=== PATIENT | female | born 2000 | race Caucasian/White ===

== ENCOUNTER 2018-09-28 17:36 | Emergency (ER) | payer OTHER ==
[2018-09-28 18:36] LABS: BASOPHILS # (AUTO) 0.1 10^3/uL (0.0-0.1); BASOPHILS % (AUTO) 0.8 %; EOSINOPHILS # (AUTO) 0.3 10^3/uL (0.0-0.7); EOSINOPHILS % (AUTO) 3.8 %; HGB - HEMOGLOBIN 13.4 g/dL (12.0-16.0); LYMPHOCYTES # (AUTO) 2.8 10^3/uL (1.5-3.5); LYMPHOCYTES % (AUTO) 34.3 %; MEAN CORPUSCULAR HEMOGLOBIN 29.5 pg (27.0-31.0); MEAN CORPUSCULAR HGB CONC 33.3 g/dL (32.0-36.0); MEAN CORPUSCULAR VOLUME 88.5 fL (81.0-99.0); MONOCYTES # (AUTO) 0.8 10^3/uL (0.0-1.0); MONOCYTES % (AUTO) 10.2 %; NEUTROPHILS # (AUTO) 4.2 10^3/uL (1.5-6.6); NEUTROPHILS % (AUTO) 50.9 %; PLT - PLATELET COUNT 249 10^3/uL (130-450); RED BLOOD COUNT 4.54 10^6/uL (4.20-5.40); WHITE BLOOD COUNT 8.2 x10^3/uL (4.8-10.8)
[2018-09-28 18:46] LABS: ALBUMIN 4.1 g/dL (3.2-5.5); ALBUMIN/GLOBULIN RATIO 1.2 (1.0-2.2); BILIRUBIN,TOTAL 0.5 mg/dL (0.2-1.0); CREATININE 0.8 mg/dL (0.4-1.0); TOTAL PROTEIN 7.6 g/dL (6.7-8.2)
[2018-09-28 18:54] LABS: CALCIUM 9.2 mg/dL (8.5-10.3)
[2018-09-28 21:22] LABS: BILIRUBIN,URINE NEGATIVE (NEGATIVE); GLUCOSE, URINE (UA) NEGATIVE (NEGATIVE); KETONES,URINE (UA) NEGATIVE (NEGATIVE); LEUKOCYTE ESTERASE, URINE NEGATIVE (NEGATIVE); NITRITE,URINE NEGATIVE (NEGATIVE); OCCULT BLOOD,URINE NEGATIVE (NEGATIVE); PROTEIN,URINE NEGATIVE (NEGATIVE); UROBILINOGEN,URINE 0.2 (NORMAL) E.U./dL (NORMAL)
[2018-09-28 21:28] LABS: CLARITY,URINE CLEAR (CLEAR); HCG UR QUAL NEGATIVE
--- NOTE | 2018-09-28 21:34 | ED Physician Documentation ---
PD HPI ABD PAIN - Stated complaint Stated Complaint: L SIDE PX - Chief complaint Chief Complaint: General - History obtained from History obtained from: Patient - History of Present Illness Timing - onset: How many weeks ago (1) Timing - duration: Weeks (1) Timing - details: Gradual onset, Still present, Waxing and waning Quality: Cramping, Aching, Pain Location: LUQ Radiation: Left flank. No: Chest Improved by: Laying still. No: Eating Worsened by: Moving, Breathing, Palpation. No: Eating Associated symptoms: No: Fever, Nausea, Vomiting, Diarrhea, Constipation (has had formed stools most daily), Melena, Chest pain (breathing hurts, but causes pain LUQ and not chest itself), Loss of appetite Similar symptoms before: Has not had sx before Recently seen: Clinic (3 days ago in [facility] and Rx Ibuprofen, with normal CXR.) Review of Systems Constitutional: denies: Fever, Chills Nose: denies: Rhinorrhea / runny nose, Congestion Throat: denies: Sore throat Respiratory: denies: Cough GI: reports: Abdominal Pain. denies: Abdominal Swelling, Nausea, Vomiting, Constipation, Diarrhea : denies: Dysuria, Frequency, Hematuria, Discharge Skin: denies: Rash, Lesions PD PAST MEDICAL HISTORY - Past Medical History Past Medical History: No Cardiovascular: None Respiratory: None GI: None - Past Surgical History Past Surgical History: No - Present Medications Home Medications: Ambulatory Orders Medication Instructions Recorded Confirmed Docusate Sodium 100 mg PO DAILY #20 capsule 09/29/18 Hydrocodone/Acetaminophen [[place] 1 each PO Q6H PRN #15 tablet 09/29/18 5-325 Tablet] Naproxen 375 mg PO BID #20 tablet 09/29/18 - Allergies Allergies/Adverse Reactions: Allergies Allergy/AdvReac Type Severity Reaction Status Date / Time No Known Drug Allergies Allergy Verified 09/28/18 17:55 - Social History Does the pt smoke?: No Smoking Status: Never smoker Does the pt drink ETOH?: No Does the pt have substance abuse?: No Substance Use and Type: Marijuana PD ED PE NORMAL - Vitals Vital signs reviewed: Yes - General General: Alert and oriented X 3, Well developed/nourished, Other (appears in pain LUQ abd. ) - HEENT HEENT: Pharynx benign - Neck Neck: Supple, no meningeal sign, No adenopathy - Cardiac Cardiac: RRR, No murmur - Respiratory Respiratory: Clear bilaterally - Abdomen Abdomen: Normal bowel sounds, Soft, Non distended, No organomegaly, Other (very tender locally LUQ with some percussion and referred tenderness. No rebound. No general abd tenderness. No CVA tenderness. ) - Female Female : Deferred - Back Back: No CVA TTP - Derm Derm: Normal color, Warm and dry, No rash (not tender on skin to light touch) - Extremities Extremities: No tenderness to palpate, Normal ROM s pain, No edema, No calf tenderness / cord - Neuro Neuro: Alert and oriented X 3, No motor deficit, Normal speech Results - Vitals Vitals: Vital Signs - 24 hr 09/28/18 09/28/18 09/28/18 17:52 19:52 21:58 Temperature 36.6 C 36.8 C 36.7 C Heart Rate 74 77 70 Respiratory 14 12 14 Rate Blood Pressure 135/89 H 134/73 H 127/82 H O2 Saturation 100 100 100 09/29/18 00:05 Temperature 37.1 C Heart Rate 82 Respiratory 14 Rate Blood Pressure 104/63 O2 Saturation 100 Oxygen O2 Source Room air - Labs Labs: Laboratory Tests 09/28/18 09/28/18 09/28/18 18:20 18:20 21:19 WBC 8.2 RBC 4.54 Hgb 13.4 Hct 40.2 MCV 88.5 MCH 29.5 MCHC 33.3 RDW 13.0 Plt Count 249 MPV 8.0 Neut # (Auto) 4.2 Lymph # (Auto) 2.8 [place] # (Auto) 0.8 Eos # (Auto) 0.3 Baso # (Auto) 0.1 Absolute Nucleated RBC 0.01 Nucleated RBC % 0.1 Sodium 138 Potassium 3.8 Chloride 105 Carbon Dioxide 23 Anion Gap 10.0 BUN 11 Creatinine 0.8 Estimated GFR (MDRD) 92 Glucose 91 Calcium 9.2 Total Bilirubin 0.5 AST 22 ALT 14 Alkaline Phosphatase 56 Total Protein 7.6 Albumin 4.1 Globulin 3.5 Albumin/Globulin Ratio 1.2 Lipase 39 Urine Color YELLOW Urine Clarity CLEAR Urine pH 6.0 Ur Specific [place] <=1.005 Urine Protein NEGATIVE Urine Glucose (UA) NEGATIVE Urine Ketones NEGATIVE Urine Occult Blood NEGATIVE Urine Nitrite NEGATIVE Urine Bilirubin NEGATIVE Urine Urobilinogen 0.2 (NORMAL) Ur Leukocyte Esterase NEGATIVE Ur Microscopic Review NOT INDICATED Urine Culture Comments NOT INDICATED Urine HCG, Qual NEGATIVE - Rads (name of study) abd CT Radiology: Prelim report reviewed (no acute process), See rad report PD MEDICAL DECISION MAKING - ED course Complexity details: reviewed results (CT report without acute process. To my eye, there is moderate amount stool and full stomach load, so consider delayed emptying or some element of constipation. Will give stool softener. ), re- evaluated patient (pain improved with IV meds. Still locally tender LUQ. ), considered differential, d/w patient Departure - Departure Disposition: Home, Self Care Clinical Impression: Abdominal pain Qualifiers: Abdominal location: left upper quadrant Qualified Code(s): R10.12 - Left upper quadrant pain Condition: Stable Record reviewed to determine appropriate education?: Yes Instructions: ED Abdominal Pain Unkn Cause Follow-Up: KETTY EASON [Primary Care Provider] - Prescriptions: Docusate Sodium 100 mg PO DAILY #20 capsule Hydrocodone/Acetaminophen [[place] 5-325 Tablet] 1 each PO Q6H PRN #15 tablet PRN Reason: Pain Naproxen 375 mg PO BID #20 tablet Comments: Stay well-hydrated. Liquid diet and soft food for a day or 2. Use some anti-inflammatories such as naproxen with food twice daily for the next week or so. Add hydrocodone if needed for pain. Use docusate stool softener once or twice daily for the next week to be sure to have soft stool out. Follow-up with your primary care in the next few days for recheck. Discharge Date/Time: 09/29/18 00:15
[2018-09-28] MEDS ORDERED: SODIUM CHLORIDE 0.9% 1,000 ML IV ONE (21:58)
[2018-09-28] MEDS ORDERED: KETOROLAC 15 MG/ML VIAL IVP STA (21:58)
[2018-09-28] MEDS ORDERED: MORPHINE 2 MG/ML CARPUJECT IVP STA (22:03)
[2018-09-28] MEDS ORDERED: IOVERSOL 320 100 ML VIAL IVP ONE ×2 (22:21→22:42)
--- NOTE | 2018-09-28 22:53 | CT Report ---
Reason: LUQ abd pain for a week Procedure Date: 09/28/2018 Accession Number: [id number] / [id number] Procedure: CT - Abdomen/Pelvis W CPT Code: FULL RESULT: EXAM: CT ABDOMEN AND PELVIS EXAM DATE: 09/28/2018 10:40 PM. CLINICAL HISTORY: Left upper quadrant abdominal pain for a week. COMPARISONS: None. TECHNIQUE: Routine helical CT imaging was performed through the abdomen and pelvis. IV contrast: 100 mL Optiray 320. Enteric contrast: No. Reconstructions: Coronal and sagittal. In accordance with CT protocol optimization, one or more of the following dose reduction techniques were utilized for this exam: automated exposure control, adjustment of mA and/or KV based on patient size, or use of iterative reconstructive technique. FINDINGS: Lung Bases: No acute findings. Liver: Unremarkable. Gallbladder: Unremarkable. Bile Ducts: Unremarkable. Pancreas: Unremarkable. Spleen: Unremarkable. Adrenals: Unremarkable. Kidneys: Unremarkable. Bowel: The appendix is not definitely seen. No acute bowel findings are seen. No free fluid or free air. No evidence for bowel obstruction. Pelvis: The bladder is unremarkable. Uterus is anteverted. Vasculature: No acute findings. Bones: No acute bone findings. Moderate L5-S1 degenerative disk disease with disk height loss and osteophytes. IMPRESSION: No acute findings are seen. See above. RADIA
[2018-09-29] MEDS ORDERED: HYDROcod/ACET 5/325 Prepack 4 PO STA (00:03)
[2018-09-29] MEDS ORDERED: DOCUSATE SODIUM 100 MG CAPSULE PO STA (00:03)
[2018-09-29 00:06] VITALS: BP 104/63
== END 2018-09-29 00:15 | disposition home or self-care (01) ==
LOC: ED 17:36
DX: R10.12 Left upper quadrant pain (principal); K59.00 Constipation, unspecified
CPT/HCPCS: 36415; 74177; 80053; 81003; 81025; 83690; 85025; 96361; 96374; 99283; A9270; Q9967; 81001; 87086

== ENCOUNTER 2018-10-08 07:24 | Emergency (ER) | payer OTHER ==
--- NOTE | 2018-10-08 07:36 | ED Physician Documentation ---
History of Present Illness - Stated complaint Stated Complaint: VOMITING/PAIN ALL OVER - History obtained from History obtained from: Patient - History of Present Illness Timing: Prior to arrival - Additonal information Additional information: Patient is a 17-year-old female presenting with diffuse abdominal pain associated with nausea, vomiting, constipation worsening over the past several hours. Patient admits that she has been struggling with abdominal issues over the past few weeks and has seen her primary care physician and then was in this ED about 10 days ago with negative work-up. Patient was sent home with naproxen and hydrocodone. Patient states she has been using the hydrocodone and became constipated. Patient then started using a stool softener yesterday and had a small amount of stool passed this morning. Patient denies fever, chills, vaginal changes, although patient is on her menstrual period at this time. No other improving or worsening factors noted. Review of Systems Constitutional: denies: Fever GI: reports: Abdominal Pain, Nausea, Vomiting, Constipation : reports: Vaginal bleeding. denies: Dysuria PD PAST MEDICAL HISTORY - Past Medical History Cardiovascular: None Respiratory: None GI: None - Past Surgical History Past Surgical History: No - Present Medications Home Medications: Ambulatory Orders Medication Instructions Recorded Confirmed Docusate Sodium 100 mg PO DAILY #20 capsule 09/29/18 Hydrocodone/Acetaminophen [[place] 1 each PO Q6H PRN #15 tablet 09/29/18 5-325 Tablet] Naproxen 375 mg PO BID #20 tablet 09/29/18 Dicyclomine [Bentyl] 20 mg PO QID #14 capsule 10/08/18 - Allergies Allergies/Adverse Reactions: Allergies Allergy/AdvReac Type Severity Reaction Status Date / Time No Known Drug Allergies Allergy Verified 10/08/18 07:38 - Social History Does the pt smoke?: No Smoking Status: Never smoker Does the pt drink ETOH?: No Does the pt have substance abuse?: No PD ED PE NORMAL - Vitals Vital signs reviewed: Yes - General General: Alert and oriented X 3, No acute distress, Well developed/nourished, Other (Tearful, uncomfortable appearing) - HEENT HEENT: Atraumatic, Moist mucous membranes, Pharynx benign, Dentition benign - Cardiac Cardiac: RRR, No murmur - Respiratory Respiratory: No respiratory distress, Clear bilaterally - Abdomen Abdomen: Soft, Non distended. No: Non tender (Diffuse moderate tenderness without rebound or guarding.) - Derm Derm: Normal color, Warm and dry, No rash - Extremities Extremities: No deformity, No tenderness to palpate - Neuro Neuro: Alert and oriented X 3, No motor deficit, No sensory deficit - Psych Psych: Normal mood, Normal affect Results - Vitals Vitals: Vital Signs - 24 hr 10/08/18 10/08/18 07:33 11:46 Temperature 37.2 C 37 C Heart Rate 102 H 88 Respiratory 14 20 Rate Blood Pressure 102/60 108/65 O2 Saturation 97 99 Oxygen O2 Source Room air - Labs Labs: Laboratory Tests 10/08/18 10/08/18 10/08/18 07:59 07:59 07:59 WBC 13.8 H RBC 4.67 Hgb 13.8 Hct 41.9 MCV 89.7 MCH 29.6 MCHC 32.9 RDW 12.4 Plt Count 216 MPV 9.7 Neut # (Auto) 12.5 H Lymph # (Auto) 0.4 L [place] # (Auto) 0.6 Eos # (Auto) 0.2 Baso # (Auto) 0.0 Absolute Nucleated RBC 0.00 Nucleated RBC % 0.0 Sodium 137 Potassium 4.0 Chloride 102 Carbon Dioxide 23 Anion Gap 12.0 BUN 11 Creatinine 0.8 Estimated GFR (MDRD) 92 Glucose 126 H Calcium 9.2 Total Bilirubin 0.8 AST 18 ALT 14 Alkaline Phosphatase 56 Total Protein 7.9 Albumin 4.3 Globulin 3.6 Albumin/Globulin Ratio 1.2 Lipase 31 Serum HCG, Qual NEGATIVE Urine Color Urine Clarity Urine pH Ur Specific [place] Urine Protein Urine Glucose (UA) Urine Ketones Urine Occult Blood Urine Nitrite Urine Bilirubin Urine Urobilinogen Ur Leukocyte Esterase Ur Microscopic Review Urine Culture Comments Urine HCG, Qual 10/08/18 10:40 WBC RBC Hgb Hct MCV MCH MCHC RDW Plt Count MPV Neut # (Auto) Lymph # (Auto) [place] # (Auto) Eos # (Auto) Baso # (Auto) Absolute Nucleated RBC Nucleated RBC % Sodium Potassium Chloride Carbon Dioxide Anion Gap BUN Creatinine Estimated GFR (MDRD) Glucose Calcium Total Bilirubin AST ALT Alkaline Phosphatase Total Protein Albumin Globulin Albumin/Globulin Ratio Lipase Serum HCG, Qual Urine Color YELLOW Urine Clarity CLEAR Urine pH 7.5 Ur Specific [place] 1.010 Urine Protein NEGATIVE Urine Glucose (UA) NEGATIVE Urine Ketones NEGATIVE Urine Occult Blood NEGATIVE Urine Nitrite NEGATIVE Urine Bilirubin NEGATIVE Urine Urobilinogen 0.2 (NORMAL) Ur Leukocyte Esterase NEGATIVE Ur Microscopic Review NOT INDICATED Urine Culture Comments NOT INDICATED Urine HCG, Qual NEGATIVE PD MEDICAL DECISION MAKING - ED course Complexity details: reviewed old records, reviewed results, re-evaluated patient, considered differential, d/w patient ED course: Patient has been seen by her primary care physician and by the ED in the last several days regarding her abdominal complaints. Work-up including CT imaging 10 days ago returned relatively unremarkable. Have low suspicion for new acute pathology such as appendicitis, gallbladder disease, pancreatitis, Diverticulitis, AAA, renal disease including UTI, or other pelvic pathology, but considered. Do feel the patient's menstrual cramps could be contributing to today's complaints. Also have high suspicion that patient has been suffering from constipation likely from her use of narcotics without a stool softener or laxative. Also considering small bowel obstruction and will plan to obtain plain films once test returns negative. Screening lab work and urinalysis also ordered. Patient started on IV fluids, Zofran, and Bentyl.Screening lab work returned without acute abnormalities except for mild leukocytosis, likely reflective of recent repetitive vomiting as opposed to true infection or sepsis. Urinalysis also returned unremarkable for infection or other complication. testing negative. Patient received Toradol and abdominal plain film obtained. Plain film did not find evidence of obstruction or heavy stool burden, but large amount of gas. Tampon also visualized. Patient confirmed recent placement of tampon within the last several hours. Do not feel this is related to her issues today. Patient reports extreme relief with administration of Toradol. Discussed cessation of narcotics as feel this was likely contributing to her discomfort. Also recommended continued use of stool softener/laxative, NSAIDs, and will discharge home with Bentyl as well. Do feel that her menstrual cramping is contributory today to. Discussed other supportive cares, diet hydration recommendations, return precautions, and appropriate follow-up. Patient voiced understanding and is comfortable with discharge plan. Departure - Departure Disposition: 01 Home, Self Care Clinical Impression: Abdominal pain Qualifiers: Abdominal location: generalized Qualified Code(s): R10.84 - Generalized abdominal pain Condition: Good Instructions: ED Abdominal Pain Unkn Cause Follow-Up: KETTY EASON [Primary Care Provider] - Within 3 Days Prescriptions: Dicyclomine [Bentyl] 20 mg PO QID #14 capsule Comments: Please stop using narcotics. Please continue to use nausea medications, as well as stool softeners and laxatives as prescribed. May use Bentyl for cramping as needed. May also use Ibuprofen/Tylenol. Recommend hydration with Powerade/Gatorade, bland diet advancing as tolerated, and follow-up with your primary care physician in next 2 to 3 days. Return to ED sooner if experience worsening symptoms or have other concerns.
[2018-10-08] MEDS ORDERED: SODIUM CHLORIDE 0.9% 1,000 ML IV ONE (07:44)
[2018-10-08] MEDS ORDERED: ONDANSETRON 4 MG/2 ML VIAL IVP STA (07:44)
[2018-10-08] MEDS ORDERED: DICYCLOMINE 10 MG CAPSULE PO STA (07:44)
[2018-10-08 08:08] LABS: BASOPHILS % (AUTO) 0.1 %; EOSINOPHILS # (AUTO) 0.2 10^3/uL (0.0-0.7); EOSINOPHILS % (AUTO) 1.5 %; HGB - HEMOGLOBIN 13.8 g/dL (12.0-16.0); LYMPHOCYTES # (AUTO) 0.4 10^3/uL (1.5-3.5); LYMPHOCYTES % (AUTO) 3.1 %; MEAN CORPUSCULAR HEMOGLOBIN 29.6 pg (27.0-31.0); MEAN CORPUSCULAR HGB CONC 32.9 g/dL (32.0-36.0); MEAN CORPUSCULAR VOLUME 89.7 fL (81.0-99.0); MEAN PLATELET VOLUME 9.7 fL (7.9-10.8); MONOCYTES # (AUTO) 0.6 10^3/uL (0.0-1.0); MONOCYTES % (AUTO) 4.5 %; NEUTROPHILS # (AUTO) 12.5 10^3/uL (1.5-6.6); NEUTROPHILS % (AUTO) 90.5 %; PLT - PLATELET COUNT 216 10^3/uL (130-450); RED BLOOD COUNT 4.67 10^6/uL (4.20-5.40); RED CELL DISTRIBUTION WIDTH 12.4 % (12.0-15.0); WHITE BLOOD COUNT 13.8 x10^3/uL (4.8-10.8)
[2018-10-08 08:20] LABS: ALBUMIN 4.3 g/dL (3.2-5.5); ALBUMIN/GLOBULIN RATIO 1.2 (1.0-2.2); BILIRUBIN,TOTAL 0.8 mg/dL (0.2-1.0); CALCIUM 9.2 mg/dL (8.5-10.3); CREATININE 0.8 mg/dL (0.4-1.0); TOTAL PROTEIN 7.9 g/dL (6.7-8.2)
[2018-10-08 10:48] LABS: HCG,QUALITATIVE BLOOD NEGATIVE
[2018-10-08] MEDS ORDERED: KETOROLAC 30 MG/ML VIAL IVP STA (10:50)
[2018-10-08 11:18] LABS: BILIRUBIN,URINE NEGATIVE (NEGATIVE); GLUCOSE, URINE (UA) NEGATIVE (NEGATIVE); KETONES,URINE (UA) NEGATIVE (NEGATIVE); LEUKOCYTE ESTERASE, URINE NEGATIVE (NEGATIVE); NITRITE,URINE NEGATIVE (NEGATIVE); OCCULT BLOOD,URINE NEGATIVE (NEGATIVE); PH,URINE 7.5 PH (5.0-7.5); PROTEIN,URINE NEGATIVE (NEGATIVE); UROBILINOGEN,URINE 0.2 (NORMAL) E.U./dL (NORMAL)
[2018-10-08 11:20] LABS: CLARITY,URINE CLEAR (CLEAR); HCG UR QUAL NEGATIVE
--- NOTE | 2018-10-08 11:36 | XRAY Report ---
Reason: concern for obstruction Procedure Date: 10/08/2018 Accession Number: [id number] / [id number] Procedure: XR - Abdomen 2 View X-Ray CPT Code: 87116 FULL RESULT: EXAM: ABDOMEN RADIOGRAPHY EXAM DATE: 10/08/2018 11:24 AM. CLINICAL HISTORY: Concern for obstruction. COMPARISON: None. TECHNIQUE: 2 views. FINDINGS: Lung Bases: Unremarkable. Bowel Gas Pattern: Abundant gas is seen within large bowel with an overall paucity of small bowel gas. Free Air: None. Other: In the region of the midline lower pelvis, corresponding to rectal vault or vagina is a gas density tubular-appearing bilobed structure with a length of 5.9 cm and a width of 2.3 cm, which demonstrates shape and angulation suggestive of a radiolucent man-made object. IMPRESSION: Potential foreign body in rectal vault or vagina versus atypical appearance of bowel gas. Given the apparent abundant progression of gas in the large bowel without significant small bowel gas and a potential large bowel outlet obstruction, I recommend physical examination if clinically indicated. RADIA The above call report findings were discussed with Elisabet Warren by Dr. Octavio Rockwell at 11:35 AM on 10/08/2018.
[2018-10-08 11:47] VITALS: BP 108/65
== END 2018-10-08 12:22 | disposition home or self-care (01) ==
LOC: ED 07:24
DX: R10.84 Generalized abdominal pain (principal); R10.817 Generalized abdominal tenderness; R11.2 Nausea with vomiting, unspecified; K59.00 Constipation, unspecified; N94.6 Dysmenorrhea, unspecified
CPT/HCPCS: 36415; 74019; 80053; 81003; 81025; 83690; 84703; 85025; 96361; 96374; 96375; 99283; A9270; 81001; 84702; 87086

== ENCOUNTER 2021-03-15 16:30 | Outpatient (CLI) | payer OTHER ==
[2021-03-16 02:05] LABS: BACTERIAL VAGINOSIS DNA NEGATIVE (NEGATIVE); CANDIDA GLABRATA DNA NEGATIVE (NEGATIVE); CANDIDA GROUP DNA NEGATIVE (NEGATIVE); CANDIDA KRUSEI DNA NEGATIVE (NEGATIVE); TRICHOMONAS VAGINALIS DNA NEGATIVE (NEGATIVE)
== END 2021-03-15 23:59 | disposition home or self-care (01) ==
LOC: LAB.N 16:30
PROVIDERS: ATTEND Physician Assistant
DX: R30.0 Dysuria (principal)
CPT/HCPCS: 87086; 87661; 87801

== ENCOUNTER 2021-04-03 13:00 | Outpatient (CLI) | payer OTHER | END 2021-04-03 23:59 | disposition home or self-care (01) | LOC: LAB.N 13:00 | PROVIDERS: ATTEND Physician Assistant | DX: R05.9 Cough, unspecified (principal); R07.0 Pain in throat; Z20.822 Contact with and (suspected) exposure to COVID-19 ==

== ENCOUNTER 2022-06-05 09:39 | Outpatient (CLI) | payer OTHER | END 2022-06-05 09:40 | disposition EMS.NT | LOC: EMS 09:39 | DX: F32.A Depression, unspecified (principal); R45.89 Other symptoms and signs involving emotional state; Z60.8 Other problems related to social environment; Z91.51 Personal history of suicidal behavior ==